=== PATIENT | female | born 2005 | race Two or more races ===

== ENCOUNTER 2025-04-22 16:09 | Emergency (ER) | payer MEDICAID, SELFPAY ==
[2025-04-22 16:10] VITALS: BMI 41.8
[2025-04-22 16:27] VITALS: BP 144/89; PULSE 87; RESP 18; TEMP 36.9; O2SAT 97
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
[2025-04-22 18:03] LABS: HCG Qualitative,Urine Negative
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
[2025-04-22] MEDS: IBUPROFEN TAB 400 MG TABLET 800 MG PO (18:34)
== END 2025-04-22 18:40 | disposition home or self-care (01) ==
PROVIDERS: Nurse Practitioner Primary Care; Emergency Provider Family Medicine
DX: S20.01XA Contusion of right breast, initial encounter (principal); S30.0XXA Contusion of lower back and pelvis, initial encounter; S10.91XA Abrasion of unspecified part of neck, initial encounter; S09.90XA Unspecified injury of head, initial encounter; V89.9XXA Person injured in unspecified vehicle accident, initial encounter
CPT/HCPCS: 70450; 71250; 72125; 74176; 81025; 99283; A9270

== ENCOUNTER 2025-06-22 08:44 | Emergency (ER) | payer BC, MEDICAID, SELFPAY ==
[2025-06-22 09:01] VITALS: BP 142/96; PULSE 77; RESP 18; TEMP 36.7; O2SAT 97; BMI 47.2
--- NOTE | 2025-06-22 09:06 | PD.EDSKIN ---
ED Skin Abcess FB-RME/HPI General Chief complaint: Skin/Abscess/Foreign Body Stated complaint: RASH BUE/THIGHS X 3 WKS Source: patient Arrival date/time: 06/22/25 08:44 20-year-old female with no known medical history presents to the emergency room with a chief complaint of a rash to her bilateral thighs and upper extremities x 3 weeks Mode of arrival: ambulatory Limitations: no limitations Related Data Previous Rx's ?Medication ?Instructions ?Recorded ibuprofen 800 mg tablet 800 mg PO Q8H PRN pain #30 tabs 04/22/25 Allergies Allergy/AdvReac Type Severity Reaction Status Date / Time No Known Allergies Allergy Verified 06/22/25 08:46 Review of Systems Review of Systems Systems Reviewed: All systems reviewed, normal except as documented Constitutional Constitutional: Reports system reviewed and no additional complaints, except as documented, Denies fatigue, Denies fever(s), Denies headache(s) and Denies weakness Eyes Eyes: Reports system reviewed and no additional complaints, except as documented, Denies blurry vision, Denies change in vision and Denies itchy eyes ENT Ears, Nose, Mouth, and Throat: Reports system reviewed and no additional complaints, except as documented, Denies otalgia, Denies headache(s), Denies lip swelling, Denies nasal congestion, Denies throat swelling, Denies tongue swelling and Denies vertigo Cardiovascular Cardiovascular: Reports system reviewed and no additional complaints, except as documented, Denies chest pain, Denies dyspnea and Denies dyspnea on exertion Respiratory Respiratory: Reports system reviewed and no additional complaints, except as documented, Denies chest congestion, Denies cough, Denies dyspnea, Denies dyspnea on exertion and Denies wheezing Gastrointestinal Gastrointestinal: Reports system reviewed and no additional complaints, except as documented, Denies abdominal pain, Denies cramping, Denies nausea and Denies vomiting Genitourinary Genitourinary: Reports system reviewed and no additional complaints, except as documented Musculoskeletal Musculoskeletal: Reports system reviewed and no additional complaints, except as documented and Denies back pain Integumentary/Breasts Skin/Breast: Reports system reviewed and no additional complaints, except as documented and Denies wounds Neurologic Neurologic: Reports system reviewed and no additional complaints, except as documented, Denies confusion, Denies headache(s), Denies lack of coordination, Denies vertigo and Denies weakness Psychiatric Psychiatric: Reports system reviewed and no additional complaints, except as documented, Denies anxiety, Denies confusion, Denies depression, Denies paranoia, Denies suicidal ideation and Denies tactile hallucinations Endocrine Endocrine: Reports system reviewed and no additional complaints, except as documented and Denies fatigue Hematologic/Lymphatic Hematologic/Lymphatic: Reports system reviewed and no additional complaints, except as documented and Denies lymphadenopathy Allergic/Immunologic Allergic/Immunologic: Reports system reviewed and no additional complaints, except as documented, Denies GI upset with certain foods, Denies itchy eyes, Denies lip swelling, Denies seasonal rhinorrhea, Denies throat swelling, Denies tongue swelling, Reports urticaria and Denies wheezing Past Medical History Social History SMOKING STATUS: Never smoker ED Exam General Limitations: Present no limitations General appearance: Present alert and in no apparent distress Head Head exam: Present atraumatic Eye Eye exam: Present normal appearance, PERRL and EOMI ENT ENT exam: Present normal exam, normal oropharynx and mucous membranes moist Neck Neck exam: Present normal inspection, full ROM and trachea midline Chest Chest inspection: Present normal inspection and symmetric chest wall rise Respiratory Respiratory exam: Present normal lung sounds bilaterally Cardiovascular Cardiovascular exam: Present regular rate, normal rhythm and normal heart sounds Abdominal Exam Abdominal exam: Present soft and normal bowel sounds Extremities Exam Extremities exam: Present normal inspection and full ROM Back Exam Back exam: Present normal inspection and full ROM Neurological Exam Neurological exam: Present alert, oriented X3 and CN II-XII intact Psychiatric Psychiatric exam: Present normal affect and normal mood Skin Skin exam: Present warm, dry, intact, normal color and rash Expanded Skin Exam Type of lesion: Present rash Distribution: Present generalized, LUE, RUE and other (Groin) Course Quality Measures none Orders Category Date Time Status Dexamethasone Inj [Decadron Inj] Med 06/22/25 09:06 Once 10 mg PO X1 ONE DiphenhydrAMINE [Benadryl] Med 06/22/25 09:06 Once 25 mg PO X1 ONE Famotidine [Pepcid] Med 06/22/25 09:06 Once 20 mg PO X1 ONE Vital Signs Vital signs: Vital Signs Temperature 98.1 F 06/22/25 09:01 Pulse Rate 77 06/22/25 09:01 Respiratory Rate 18 06/22/25 09:01 Blood Pressure 142/96 H 06/22/25 09:01 Pulse Oximetry (%) 97 06/22/25 09:01 Oxygen Delivery Method Room Air 06/22/25 09:01 Skin / Abscess / Foreign Body MDM Narrative MDM Narrative:: 20-year-old female with no known medical history presents to the emergency room with a chief complaint of a rash to her bilateral thighs and upper extremities x 3 weeks Patient is hemodynamically stable and in no apparent distress Physical examination shows a rash to the upper extremities and bilateral thighs. This rash is not warm to the touch or erythemic. Patient states this rash began after she began taking Wegovy medication. Patient has no throat swelling lip swelling tongue swelling or any respiratory distress. Patient has clear bilateral lung sounds there is no evidence of any anaphylactic reaction Antihistamines were given with improvement to her symptoms Patient was discharged and educated to follow-up with primary care provider in the next 24 to 48 hours and return to the emergency room for any evidence of worsening signs or symptoms Patient data External records reviewed:: [facility] previous records Clinical information provided by:: patient Social determinants that could affect healthcare access:: none Patient has the following chronic illnesses:: No chronic illness How is presenting disease/condition affected by chronic disease/condition?: no chronic disease Evaluation data The following diagnostics were reviewed and interpreted by me:: lab results and radiology exam(s) Lab and/or radiology exams considered but not ordered:: Labs and radiology exams considered and ordered Interpretation Summary: N/A Medications / Prescriptions Medications or Prescriptions considered but not ordered:: Medication given Medication administrations:: Medication given Consultations Consultation(s) initiated? (list below): No Diagnosis Skin/Abscess Differential Diagnosis: abscess of skin or subcutaneous tissue, allergic reaction to drug, insect bites and contact dermatitis Most likely diagnosis given after review of the tests above:: Allergic reaction to drug Admission Indicated Admission indicated?: not indicated Admission Request Was there a request for admission?: No Disposition Plan Disposition Plan: Discharge Discharge Attestation Discharge Attestation: The patient and all family members were given an opportunity to ask questions and understood the discharge instructions. Discharge instructions specifically effects, indications for sooner follow up or return to the emergency department, and the expected course of current diagnosis. Patient condition: Stable Discharge Plan Plan Patient Disposition: HOME (Self Care) Discharge Disposition comment: Stable Prescriptions/Referrals Prescriptions/Med Rec: No Action ibuprofen 800 mg tablet 800 mg PO Q8H PRN (Reason: pain) Qty: 30 0RF Problem List Clinical Impression: Allergic reaction to drug Patient/Caregiver Discharge Instructions Education Materials: ED Medicine Reaction: Allergic Additional Instructions: Please follow-up with your primary care provider in the next 24 to 48 hours For any evidence of worsening signs or symptoms return to emergency room immediately Print Language: Rwandan Stand Alone Forms: Mariama Award Info., Work/School Release, Patient Portal Info Letter PA/STRIPPER [employer] T[employer] Supervising Physician PA/[employer] Supervising Physician: Dr. Brito
[2025-06-22] MEDS: DEXAMETHASONE SOD PHOS INJ 10 MG/ML VIAL PO (09:30)
[2025-06-22] MEDS: FAMOTIDINE 20 MG TABLET PO (09:30)
[2025-06-22] MEDS: DiphenhydrAMINE ELIX 25 MG/10 ML UDC PO (09:30)
== END 2025-06-22 09:39 | disposition home or self-care (01) ==
LOC: SERX 09:29
PROVIDERS: Emergency Provider Nurse Practitioner Family; PCP Physician Assistant
DX: T50.905A Adverse effect of unspecified drugs, medicaments and biological substances, initial encounter (principal)
CPT/HCPCS: 99281; J1100; A9270